=== PATIENT | male | born 1955 ===

== ENCOUNTER 2017-05-03 16:58 | Emergency (ER) | payer SELFPAY ==
[~2017-05-03] VITALS: Ht 185.4 cm; Wt 120.0 kg
[2017-05-03 18:01] VITALS: BP 197/109
== END 2017-05-03 23:37 | disposition left against medical advice (07) ==
LOC: ER 16:59
DX: M54.2 Cervicalgia (principal); M54.9 Dorsalgia, unspecified; Z53.21 Procedure and treatment not carried out due to patient leaving prior to being seen by health care provider